=== PATIENT | female | born 1985 | race Hispanic/Latino ===

== ENCOUNTER 2018-02-12 10:13 | Emergency (ER) | payer OTHER ==
[2018-02-12 11:53] LABS: Urine Blood 3+ (NEG); Urine Glucose NEGATIVE (NEG); Urine Protein TRACE (NEG); Urine Specific Gravity 1.025 (1.005-1.030); Urine pH 5.5 (5.0-7.0)
[2018-02-12 12:22] LABS: Absolute Lymphocytes (CBC) 0.8 K/uL (0.7-4.9); Absolute Monocytes 0.3 K/uL (0.1-1.3); Absolute Neutrophil 2.6 K/uL (1.8-8.0); Basophils % 0.2 % (0-1.3); Eosinophils % 2.9 % (0-4.4); Hematocrit 38.6 % (36.0-45.0); Lymphocytes % 20.5 % (15.3-44.8); MPV 10.2 fL (7.6-11.3); Monocytes % 7.7 % (3.3-12.3)
[2018-02-12] MEDS ORDERED: NA CHLORIDE 0.9% 1,000 ML ONE (12:24)
[2018-02-12] MEDS ORDERED: ONDANSETRON 4 MG/2 ML VIAL ONE (12:24)
[2018-02-12] MEDS ORDERED: MAGNE/ALUM HYDROXD 30 ML UCUP ONE (12:24)
[2018-02-12] MEDS ORDERED: FAMOTIDINE 20 MG/2 ML VIAL IV ONE (12:25)
[2018-02-12] MEDS ORDERED: LIDOCAINE VISCOUS 2% SOLN 15 ML UDC ONE (12:25)
[2018-02-12 12:38] LABS: ALT/SGPT 14 U/L (12-78); AST/SGOT 16 U/L (15-37); Albumin 3.4 g/dL (3.4-5.0); Alkaline Phosphatase 68 U/L (45-117); BUN Blood Urea Nitrogen 9 mg/dL (7-18); Bicarbonate 23 mmol/L (21-32); Bilirubin Direct 0.3 mg/dL (0-0.2); Bilirubin Total 1.1 mg/dL (0.2-1.0); Glucose Level 92 mg/dL (74-106); Lipase 91 U/L (73-393); Magnesium 2.1 mg/dL (1.8-2.4); Potassium 3.2 mmol/L (3.5-5.1); Protein, Total 7.8 g/dL (6.4-8.2); Sodium Level 139 mmol/L (136-145)
[2018-02-12] MEDS ORDERED: CEFTRIAXONE/SWI 1gm 1 GM/10 ML SYR ONE (13:36)
--- NOTE | 2018-02-12 14:16 | EDPHYS ---
Physician Documentation [facility] Name: Luna Argueta Age: 33 yrs Sex: Female : 1985 Arrival Date: 02/12/2018 Time: 10:15 Bed 20 Private MD: ED Physician Jorge Rollins HPI: 02/12 11:58 This 33 yrs old Unknown Female presents to ER via Ambulatory with complaints of cp Diarrhea. 11:58 The patient presents to the emergency department with diarrhea, that is continuous, cp abdominal pain, of the epigastric area. 11:58 Onset: The symptoms/episode began/occurred 2 day(s) ago. Possible causes: unknown. cp Associated signs and symptoms: Pertinent positives: anorexia, Pertinent negatives: constipation, dysuria, GI bleeding, vomiting. Severity of symptoms: in the emergency department the symptoms are unchanged despite home interventions. 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 - Social history:: Smoking status: Patient/guardian denies using tobacco. - Ebola Screening: : Patient negative for fever greater than or equal to 101.5 degrees Fahrenheit, and additional compatible Ebola Virus Disease symptoms Patient denies exposure to infectious person Patient denies travel to an Ebola-affected area in the 21 days before illness onset No symptoms or risks identified at this time. ROS: 12:05 Constitutional: Positive for poor PO intake, Negative for body aches, fever. cp 12:05 Eyes: Negative for injury, pain, redness, and discharge. cp 12:05 ENT: Negative for drainage from ear(s), ear pain, sore throat, difficulty swallowing, difficulty handling secretions. 12:05 Cardiovascular: Negative for chest pain, edema, palpitations. 12:05 Respiratory: Negative for cough, shortness of breath, wheezing. 12:05 Abdomen/GI: Positive for abdominal pain, diarrhea, anorexia, Negative for vomiting, constipation, black/tarry stool, rectal bleeding. 12:05 Back: Negative for decreased range of motion, pain at rest, pain with movement, radiated pain. 12:05 Skin: Negative for cellulitis, rash. 12:05 Neuro: Negative for altered mental status, headache, weakness. 12:05 All other systems are negative. Exam: 12:10 Constitutional: The patient appears in no acute distress, alert, awake, cp non-diaphoretic, non-toxic, well developed, well nourished. 12:10 Head/Face: Normocephalic, atraumatic. cp 12:10 Eyes: Periorbital structures: appear normal, Conjunctiva: normal, no exudate, no injection, Sclera: no appreciated abnormality, Lids and lashes: appear normal, bilaterally. 12:10 ENT: External ear(s): are unremarkable, Ear canal(s): are normal, clear, TM's: are normal, no evidence of bulging, no erythema, Nose: is normal, Mouth: Lips: moist, Oral mucosa: pink and intact, moist, Posterior pharynx: is normal, airway is patent, no erythema, no exudate. 12:10 Neck: ROM/movement: is normal, is supple, without pain, no range of motions limitations, no meningismus, no nuchal rigidity. 12:10 Chest/axilla: Inspection: normal, Palpation: is normal, no crepitus, no tenderness. 12:10 Cardiovascular: Rate: normal, Rhythm: regular. 12:10 Respiratory: the patient does not display signs of respiratory distress, Respirations: normal, no use of accessory muscles, no retractions, no splinting, no tachypnea, labored breathing, is not present, Breath sounds: are clear throughout, no decreased breath sounds, no stridor, no wheezing. 12:10 Abdomen/GI: Inspection: abdomen appears normal, Bowel sounds: active, all quadrants, Palpation: soft, in all quadrants, mild abdominal tenderness, in the epigastric area, rebound tenderness, is not appreciated, voluntary guarding, is not appreciated, involuntary guarding, is not appreciated. 12:10 Back: CVA tenderness, is absent. 12:10 Skin: cellulitis, is not appreciated, no rash present. 12:10 Neuro: Orientation: to person, place \T\ time. Mentation: is normal, Cerebellar function: is grossly normal, Motor: moves all fours, strength is normal, Sensation: is normal. Vital Signs: 10:46 BP 120 / 92; Pulse 83; Resp 16; Temp 99.1; Pulse Ox 98% on R/A; Weight 81.65 kg; Height iw 5 ft. (152.40 cm); Pain 8/10; 14:34 BP 109 / 68; Pulse 79; Resp 18; Temp 97.8; Pulse Ox 100% ; mh5 10:46 Body Mass Index 35.15 (81.65 kg, 152.40 cm) iw MDM: 11:53 Patient medically screened. cp 12:00 Differential diagnosis: gastritis, cholecystitis, pancreatitis, appendicitis, cp diverticulitis, viral gastroenteritis, gastroenteritis. 14:15 Data reviewed: vital signs, nurses notes, lab test result(s), radiologic studies, CT cp scan. 14:15 Counseling: I had a detailed discussion with the patient and/or guardian regarding: the cp historical points, exam findings, and any diagnostic results supporting the discharge/admit diagnosis, lab results, radiology results, to return to the emergency department if symptoms worsen or persist or if there are any questions or concerns that arise at home. Response to treatment: the patient's symptoms have markedly improved after treatment, VSS. Patient reports symptoms markedly improved after IV fluids and meds. Will discharge to home for continued monitoring. 14:15 Special discussion: Based on the patient's Hx, exam, and Dx evaluation, there is no cp indication for emergent surgery or inpatient Tx. It is understood by the patient/guardian that if the Sx's persist or worsen they need to return immediately for re-evaluation. 02/12 11:46 Order name: Urine Dipstick--Ancillary (enter results); Complete Time: 11:55 02/12 11:46 Order name: Urine --Ancillary (enter results); Complete Time: 11:55 02/12 11:58 Order name: Basic Metabolic Panel; Complete Time: 13:05 02/12 14:09 Interpretation: Normal except: K 3.2; CL 108; CA 8.4. 02/12 11:58 Order name: CBC with Diff; Complete Time: 13:05 02/12 13:06 Interpretation: Normal except: WBC 3.8. 02/12 11:58 Order name: Creatinine for Radiology; Complete Time: 13:05 02/12 11:58 Order name: Hepatic Function; Complete Time: 13:05 02/12 11:58 Order name: Lipase; Complete Time: 13:05 cp 02/12 11:58 Order name: Urine Microscopic Only cp 02/12 11:58 Order name: Magnesium; Complete Time: 13:05 cp 02/12 11:58 Order name: IV Saline Lock; Complete Time: 13:38 cp 02/12 11:58 Order name: Labs collected and sent; Complete Time: 13:38 cp 02/12 13:07 Order name: PO challenge; Complete Time: 13:38 cp Administered Medications: 12:55 Drug: NS 0.9% 1000 ml Route: IV; Rate: 1 bolus; Site: right antecubital; sg 13:50 Follow up: Response: No adverse reaction; IV Status: Completed infusion; IV Intake: sg 990ml 13:40 Drug: GI Cocktail without - (Maalox Suspension 30 ml, Lidocaine Liquid 2 % 15 sg ml) Route: PO; 14:10 Follow up: Response: No adverse reaction; Marked relief of symptoms sg 14:20 Drug: Rocephin - (cefTRIAXone) 1 grams {Note: Slow IVP as instructed by Pharmacy.} sg Route: IVPB; Infused Over: 30 mins; Site: right antecubital; 14:40 Follow up: IV Status: Completed infusion sg 14:20 Drug: Potassium Effervescent Tablet 50 mEq Route: PO; iw 14:43 Follow up: Response: No adverse reaction sg 14:45 Not Given (Patient Refused): Pepcid 20 mg IVP once sg 14:45 Not Given (Patient Refused): Zofran 4 mg IVP once; over 2 minutes sg Disposition: 17:40 Co-signature as Attending Physician, Jorge Rollins MD. ma2 Disposition: 02/12/18 14:15 Discharged to Home. Impression: Diarrhea, unspecified, Urinary tract infection, site not specified. - Condition is Stable. - Discharge Instructions: Food Choices to Help Relieve Diarrhea, Adult, Diarrhea, Adult, Urinary Tract Infection, Adult. - Prescriptions for Cipro 500 mg Oral Tablet - take 1 tablet by ORAL route every 12 hours for 7 days; 14 tablet. Lomotil 2.5- 0.025 mg Oral Tablet - take 1 tablet by ORAL route every 6 hours As needed; 20 tablet. Zofran 4 mg Oral Tablet - take 1 tablet by ORAL route every 12 hours As needed; 20 tablet. - Medication Reconciliation Form, Thank You Letter, Antibiotic Education, Prescription Opioid Use form. - Follow up: Private Physician; When: 2 - 3 days; Reason: Recheck today's complaints. - Problem is new. - Symptoms have improved. Signatures: Dispatcher [employer] EDXavier Flower RN RN Chiara Rodriguez RN RN iw Page, Corey, [place] PA Jorge Gonzales MD MD ma2 Corrections: (The following items were deleted from the chart) 14:09 13:05 Normal except: K 3.2; CL 108. cp cp 14:46 14:15 02/12/2018 14:15 Discharged to Home. Impression: Diarrhea, unspecified; Urinary sg tract infection, site not specified. Condition is Stable. Forms are Medication Reconciliation Form, Thank You Letter, Antibiotic Education, Prescription Opioid Use. Follow up: Private Physician; When: 2 - 3 days; Reason: Recheck today's complaints. Problem is new. Symptoms have improved. cp
--- NOTE | 2018-02-12 14:16 | ER ---
Nurse's Notes [facility] Name: Luna Argueta Age: 33 yrs Sex: Female : 1985 Arrival Date: 02/12/2018 Time: 10:15 Bed 20 Private MD: Diagnosis: Diarrhea, unspecified;Urinary tract infection, site not specified Presentation: 02/12 10:45 Presenting complaint: Patient states: no appetite since Sunday, no vomiting, diarrhea iw since then, subj fever last night. Transition of care: patient was not received from another setting of care. Onset of symptoms was February 10, 2018. Risk Assessment: Do you want to hurt yourself or someone else? Patient reports no desire to harm self or others. Initial Sepsis Screen: Does the patient meet any 2 criteria? No. Patient's initial sepsis screen is negative. Does the patient have a suspected source of infection? No. Patient's initial sepsis screen is negative. Care prior to arrival: None. 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 - Social history:: Smoking status: Patient/guardian denies using tobacco. - Ebola Screening: : Patient negative for fever greater than or equal to 101.5 degrees Fahrenheit, and additional compatible Ebola Virus Disease symptoms Patient denies exposure to infectious person Patient denies travel to an Ebola-affected area in the 21 days before illness onset No symptoms or risks identified at this time. Vital Signs: 10:46 BP 120 / 92; Pulse 83; Resp 16; Temp 99.1; Pulse Ox 98% on R/A; Weight 81.65 kg; Height iw 5 ft. (152.40 cm); Pain 8/10; 14:34 BP 109 / 68; Pulse 79; Resp 18; Temp 97.8; Pulse Ox 100% ; mh5 10:46 Body Mass Index 35.15 (81.65 kg, 152.40 cm) ED Course: 10:15 Patient arrived in ED. as 10:45 Triage completed. iw 10:46 Arm band placed on. iw 11:18 Xavier Carlisle, RN is Primary Nurse. sg 11:35 Patient has correct armband on for positive identification. Placed in gown. Bed in low mh5 position. Call light in reach. Adult w/ patient. Pulse ox on. NIBP on. 11:35 Initial lab(s) drawn, by me, held in ED. Inserted saline lock: 20 gauge in right mh5 antecubital area, using aseptic technique. Blood collected. 11:53 Bartolome Payne PA is PHCP. cp 11:53 Jorge Rollins MD is Attending Physician. cp Administered Medications: 12:55 Drug: NS 0.9% 1000 ml Route: IV; Rate: 1 bolus; Site: right antecubital; sg 13:50 Follow up: Response: No adverse reaction; IV Status: Completed infusion; IV Intake: sg 990ml 13:40 Drug: GI Cocktail without - (Maalox Suspension 30 ml, Lidocaine Liquid 2 % 15 sg ml) Route: PO; 14:10 Follow up: Response: No adverse reaction; Marked relief of symptoms sg 14:20 Drug: Rocephin - (cefTRIAXone) 1 grams {Note: Slow IVP as instructed by Pharmacy.} sg Route: IVPB; Infused Over: 30 mins; Site: right antecubital; 14:40 Follow up: IV Status: Completed infusion sg 14:20 Drug: Potassium Effervescent Tablet 50 mEq Route: PO; iw 14:43 Follow up: Response: No adverse reaction sg 14:45 Not Given (Patient Refused): Pepcid 20 mg IVP once sg 14:45 Not Given (Patient Refused): Zofran 4 mg IVP once; over 2 minutes sg Intake: 13:50 IV: 990ml; Total: 990ml. sg Outcome: 14:15 Discharge ordered by . cp 14:46 Patient left the ED. sg Signatures: Xavier Carlisle, ALEXY TRACEY Arti Viramontes Irene, RN RN Bartolome Payne [place] [id number]
[2018-02-12] MEDS ORDERED: POTASSIUM 25 MEQ EFFERV TAB ONE (14:30)
[2018-02-12 15:53] LABS: Urine Bacteria >50 /HPF (<20); Urine Culture Reflex Order NOT NEEDED
== END 2018-02-12 14:46 | disposition home or self-care (01) ==
LOC: ER 10:13
DX: N39.0 Urinary tract infection, site not specified (principal)
CPT/HCPCS: 36415; 80048; 80076; 81003; 81015; 81025; 83690; 83735; 85025; 96361; 96365; 99284; J0696; J2405; J7030

== ENCOUNTER 2020-08-15 10:00 | Emergency (ER) | payer OTHER, SELFPAY ==
--- OUTSIDE RECORDS SUMMARY | 2020-08-15 10:02 | XMS REPORT | Continuity of Care Document ---
:1985 Author Organization [facility] t Address [address] [place] [address] Care Team Providers Name Role Phone Herman Seasy DO Attending Clinician Margaret EDMOND Attending Clinician Problems This patient has no known problems. Allergies, Adverse Reactions, Alerts This patient has no known allergies or adverse reactions. Medications This patient has no known medications. Procedures This patient has no known procedures. Encounters Start End Encounter Admission Attending Care Care Encounter Source Date/Time Date/Time Type Type Clinicians Facility Department ID 2020-05-10 2020-05-10 Patient PAULIE Sesay [id number] 00:00:00 00:00:00 Outreach [facility] [id number] Herman [facility] [id number] [place] [id number] 2019-11-25 2019-11-25 Office PAULIE Robles [id number] 09:23:07 10:58:08 Visit Abby Whittaker [id number] [place] [id number] [place] [id number] [address] Results This patient has no known results.
--- NOTE | 2020-08-15 11:01 | ER ---
Nurse's Notes [facility] Name: Luna Argueta Age: 35 yrs Sex: Female : 1985 Arrival Date: 08/15/2020 Time: 10:03 Bed 24 Private MD: Diagnosis: Acute sinusitis Presentation: 08/15 10:32 Chief complaint: Patient states: Congestion "allergies" since Sunday. + FRANCO and nasal iw pressure. Taking claritan D, and had 3 doses of cefdinir 300 mg (old left over antibiotic of her child). No fever. No N/V/D. Coronavirus screen: Client denies travel out of the [place] in the last 14 days. congestion, cough unrelated to allergies, headache, runny nose, sore throat, Client presents with at least one sign or symptom that may indicate coronavirus-19. Standard/surgical mask placed on the client. Ebola Screen: Patient denies travel to an Ebola-affected area in the 21 days before illness onset. Initial Sepsis Screen: Does the patient meet any 2 criteria? HR > 90 bpm. No. Patient's initial sepsis screen is negative. Does the patient have a suspected source of infection? Yes: Productive cough/pneumonia. Risk Assessment: Do you want to hurt yourself or someone else? Patient reports no desire to harm self or others. Onset of symptoms was August 11, 2020. 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 - Social history:: Smoking status: Patient denies any tobacco usage or history of. Screenin:22 Abuse screen: Denies threats or abuse. Denies injuries from another. Nutritional kg screening: No deficits noted. Tuberculosis screening: No symptoms or risk factors identified. Fall Risk None identified. No fall in past 12 months (0 pts). No secondary diagnosis (0 pts). No IV (0 pts). Ambulatory Aid- None/Bed Rest/Nurse Assist (0 pts). Gait- Normal/Bed Rest/Wheelchair (0 pts) Mental Status- Oriented to own ability (0 pts). Total Kang Fall Scale indicates No Risk (0-24 pts). Assessment: 10:55 General: Appears in no apparent distress. Behavior is calm, cooperative, appropriate kg for age, quiet. Pain: Complains of pain in face Pain currently is 8 out of 10 on a pain scale. at worst was 8 out of 10 on a pain scale. level that patient reports is acceptable is 3 out of 10 on a pain scale. Quality of pain is described as aching. Neuro: No deficits noted. Cardiovascular: No deficits noted. Respiratory: Reports cough that is productive, pain with cough Airway is patent Trachea midline Respiratory effort is even, unlabored, relaxed, Respiratory pattern is regular, Breath sounds are clear bilaterally. GI: No deficits noted. : No deficits noted. EENT: Reports nasal congestion nasal discharge sore throat. Vital Signs: 10:32 BP 128 / 91; Pulse 100; Resp 17; Temp 98.5; Pulse Ox 96% ; Weight 86.18 kg; Height 5 iw ft. 0 in. (152.40 cm); Pain 6/10; 11:16 BP 126 / 99; Pulse 102; Resp 20; Pulse Ox 100% on R/A; kg 10:32 Body Mass Index 37.11 (86.18 kg, 152.40 cm) iw ED Course: 10:03 Patient arrived in ED. as 10:04 Rosana Fernandez FNP-C is PHCP. kb 10:04 Bartolome Escalona MD is Attending Physician. kb 10:32 Arm band placed on Patient placed in an exam room, on a stretcher. iw 10:35 Triage completed. iw 10:50 Sushila Man, ALEXY is Primary Nurse. kg 11:22 Patient has correct armband on for positive identification. Bed in low position. Call kg light in reach. Side rails up X 1. 11:22 No provider procedures requiring assistance completed. Patient did not have IV access kg during this emergency room visit. Administered Medications: 10:53 CANCELLED (Duplicate Order): SOLU-Medrol (methylPrednisoLONE) 125 mg IVP once kb 11:04 Drug: SOLU-Medrol (methylPREDNISolone sodium succinate) 125 mg Route: IM; Site: right kg gluteus; 11:16 Follow up: Response: No adverse reaction kg Outcome: 11:01 Discharge ordered by MD. weiss 11:23 Discharged to home ambulatory. kg 11:23 Condition: stable 11:23 Discharge instructions given to patient, Instructed on discharge instructions, follow up and referral plans. Demonstrated understanding of instructions, follow-up care. 11:23 Patient left the ED. kg Signatures: Rosana Fernandez, MIRZA VERA-Arti Moore as Chiara Deras RN RN iw Sushila Man RN RN kg
--- NOTE | 2020-08-15 11:01 | EDPHYS ---
Physician Documentation [facility] Name: Luna Argueta Age: 35 yrs Sex: Female : 1985 Arrival Date: 08/15/2020 Time: 10:03 Bed 24 Private MD: ELIZABETH Physician Bartolome Escalona HPI: 08/15 10:57 This 35 yrs old Female presents to ER via Ambulatory with complaints of Cold kb Symptoms. 10:57 The patient or guardian reports cough, that is intermittent, described as mild. Onset: kb The symptoms/episode began/occurred 5 day(s) ago. Severity of symptoms: At their worst the symptoms were moderate, in the emergency department the symptoms are unchanged. Modifying factors: The symptoms are alleviated by nothing, the symptoms are aggravated by nothing. Associated signs and symptoms: Pertinent positives: rhinorrhea, Pertinent negatives: chest pain, diarrhea, ear ache, fever, nausea, sore throat, vomiting. The patient has experienced similar episodes in the past, a few times. The patient has not recently seen a physician. Pt reports she has seasonal allergies that started up a week ago. States she had itchy eyes and sneezing. Pt woke up with cough, sinus congestion, runny nose and ear fullness on Sunday. States she has been taking claritin D and cefdinir 300mg BID, but symptoms aren't getting better. Denies fever/chills. 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 - Social history:: Smoking status: Patient denies any tobacco usage or history of. ROS: 10:57 Constitutional: Negative for fever, chills, and weight loss. kb 10:57 ENT: Positive for ear pain, rhinorrhea, sinus congestion, sinus pain. 10:57 Respiratory: Positive for cough, Negative for dyspnea on exertion, hemoptysis, orthopnea, pleurisy, shortness of breath, sputum production, wheezing. 10:57 All other systems are negative. Exam: 11:00 Constitutional: This is a well developed, well nourished patient who is awake, alert, kb and in no acute distress. Head/Face: Normocephalic, atraumatic. Cardiovascular: Regular rate and rhythm with a normal S1 and S2. No gallops, murmurs, or rubs. No pulse deficits. Respiratory: Respirations even and unlabored. No increased work of breathing, no retractions or nasal flaring. Skin: Warm, dry with normal turgor. Normal color. MS/ Extremity: Pulses equal, no cyanosis. Neurovascular intact. Full, normal range of motion. Neuro: Awake and alert, GCS 15, oriented to person, place, time, and situation. Moves all extremities. Normal gait. Psych: Awake, alert, with orientation to person, place and time. Behavior, mood, and affect are within normal limits. 11:00 ENT: External ear(s): are unremarkable, Ear canal(s): are normal, TM's: are normal, Nose: is normal, Mouth: is normal, Posterior pharynx: is normal. Vital Signs: 10:32 BP 128 / 91; Pulse 100; Resp 17; Temp 98.5; Pulse Ox 96% ; Weight 86.18 kg; Height 5 iw ft. 0 in. (152.40 cm); Pain 6/10; 11:16 BP 126 / 99; Pulse 102; Resp 20; Pulse Ox 100% on R/A; kg 10:32 Body Mass Index 37.11 (86.18 kg, 152.40 cm) iw MDM: 10:37 Patient medically screened. kb 10:57 Data reviewed: vital signs, nurses notes. Data interpreted: Pulse oximetry: on room air kb is 96 %. Interpretation: normal. Counseling: I had a detailed discussion with the patient and/or guardian regarding: the historical points, exam findings, and any diagnostic results supporting the discharge/admit diagnosis, the need for outpatient follow up, a family practitioner, to return to the emergency department if symptoms worsen or persist or if there are any questions or concerns that arise at home. 11:01 ED course: Pt educated to treat symptoms with otc medications. No exam findings to kb indicate need for antibiotics. Recommended mucinex and flonase for symptoms. . Administered Medications: 10:53 CANCELLED (Duplicate Order): SOLU-Medrol (methylPrednisoLONE) 125 mg IVP once kb 11:04 Drug: SOLU-Medrol (methylPREDNISolone sodium succinate) 125 mg Route: IM; Site: right kg gluteus; 11:16 Follow up: Response: No adverse reaction kg Disposition: 08/15/20 11:01 Discharged to Home. Impression: Acute sinusitis. - Condition is Stable. - Discharge Instructions: Sinusitis, Adult, Tmae-mo-Oumy. - Medication Reconciliation Form, Thank You Letter, Antibiotic Education, Prescription Opioid Use form. - Follow up: Private Physician; When: 2 - 3 days; Reason: Recheck today's complaints, Continuance of care, Re-evaluation by your physician. Follow up: Emergency Department; When: As needed; Reason: Worsening of condition. Addendum: 08/18/2020 07:50 Co-signature as Attending Physician, Bartolome Escalona MD I agree with the assessment and c rincon plan of care. Signatures: Rosana Fernandez, JODY-C JODY-Bartolome Vasques MD MD cha Williams, Irene, RN RN iw Sushila Man RN RN kg Corrections: (The following items were deleted from the chart) 08/15 10:53 10:53 SOLU-Medrol (methylPrednisoLONE) 125 mg IVP once ordered. kb kb 11:23 11:01 08/15/2020 11:01 Discharged to Home. Impression: Acute sinusitis. Condition is kg Stable. Forms are Medication Reconciliation Form, Thank You Letter, Antibiotic Education, Prescription Opioid Use. Follow up: Private Physician; When: 2 - 3 days; Reason: Recheck today's complaints, Continuance of care, Re-evaluation by your physician. Follow up: Emergency Department; When: As needed; Reason: Worsening of condition. kb
[2020-08-15] MEDS ORDERED: METHYLPREDNISOLONE 125 MG INJ ONE (11:29)
[2020-08-15 11:31] VITALS: TEMP 98.5
[2020-08-15 11:33] VITALS: BP 126/99; O2SAT 100
== END 2020-08-15 11:23 | disposition home or self-care (01) ==
LOC: ER 10:00
DX: J01.90 Acute sinusitis, unspecified (principal)
CPT/HCPCS: 96372; 99283; J2930

== ENCOUNTER 2022-05-17 06:16 | Day surgery (SDC) | payer BC ==
[2022-05-15 15:57] LABS: Absolute Lymphocytes (CBC) 2.7 K/uL (0.7-4.9); Hematocrit 34.7 % (36.0-45.0); Lymphocytes % 31.7 % (15.3-44.8); MCV 85.2 fL (80-100); MPV 8.7 fL (7.6-11.3); RBC Red Blood Cell Count 4.08 M/uL (3.86-4.86)
[2022-05-15 16:12] LABS: Albumin 3.2 g/dL (3.4-5.0); Bilirubin Direct 0.1 mg/dL (0-0.2); Bilirubin Total 0.5 mg/dL (0.2-1.0); Potassium 4.2 mEq/L (3.5-5.1); Protein, Total 7.4 g/dL (6.4-8.2)
[2022-05-17] MEDS ORDERED: Ringers Lactate 1,000 ML IV ONE (06:57)
[2022-05-17] MEDS ORDERED: CEFOXITIN SODIUM 1 GM/VIAL ONE (06:57)
[2022-05-17] MEDS ORDERED: ONDANSETRON 4 MG/2 ML VIAL ONE (07:28)
[2022-05-17] MEDS ORDERED: propofoL 200 MG/20 ML VIAL IV ONE (07:28)
[2022-05-17] MEDS ORDERED: ROCURONIUM 50 MG/5 ML VIAL IV ONE (07:28)
[2022-05-17] MEDS ORDERED: FENTANYL CITR 100 MCG/2 ML ONE (07:28)
[2022-05-17] MEDS ORDERED: MIDAZOLAM HCL 2 MG/2 ML INJ ONE (07:28)
[2022-05-17] MEDS ORDERED: LIDOCAINE 2% MPF 5 ML VIAL ONE (07:29)
--- NOTE | 2022-05-17 07:46 | P.BOP ---
Preoperative diagnosis: stmptomatic cholelithiasis, biliary dyskinesia, acute Cholecystistis Postoperative diagnosis: same Primary procedure: Laparoscopic cholecystectomy Estimated blood loss: <10cc Specimen: gb Findings: as above Anesthesia: General Transferred to: Recovery Room Condition: Good
[2022-05-17] MEDS ORDERED: NEOSTIGMINE 1 MG/ML -10 ML VIAL ONE (08:20)
[2022-05-17] MEDS ORDERED: GLYCOPYRROLATE 0.2 MG/ML SYR ONE (08:20)
[2022-05-17] MEDS ORDERED: KETOROLAC 30 MG/ML INJ ONE (08:23)
[2022-05-17] MEDS ORDERED: SUGAMMADEX SODIUM 200 MG/2 ML VIAL IV ONE (08:40)
[2022-05-17 08:46] VITALS: O2SAT 100
[2022-05-17] MEDS: HYDROMORPHONE HCL 1 MG/ML INJ ONE ×2 (08:53→09:04)
[2022-05-17] MEDS ORDERED: HYDROCODONE/APAP 7.5/325 MG TAB ONE (09:49)
[2022-05-17 10:42] VITALS: BP 129/80; TEMP 96.6
--- NOTE | 2022-05-17 13:24 | DS ---
Date of Discharge: 05/17/2022 Diagnoses: Symptomatic cholelithiasis, biliary dyskinesia, acute cholecystitis. Procedure: Laparoscopic cholecystectomy. Disposition: Home. Activity: As tolerated. No heavy lifting. Plan: Follow up in my office in 1 week. Call for appointment at [phone]. Keep area dry for 48 james rs, then may shower. Keep Steri-Strips intact. KEYA/ROME Voice ID: [id number] Report ID: [id number]
--- NOTE | 2022-05-17 13:24 | OP ---
Date of Procedure: 05/17/2022 Surgeon: Tristan Viramontes MD Analytical Manager: ANISA Chirinos. Preoperative Diagnoses: Symptomatic cholelithiasis, biliary dyskinesia, acute cholecystitis. Postoperative Diagnoses: Symptomatic cholelithiasis, biliary dyskinesia, acute cholecystitis. Procedure: Laparoscopic cholecystectomy. Estimated Blood Loss: Less than 10 mL. Estimated Blood Loss: Less than 10 mL. Complications: None. Specimen: Gallbladder. Indication: This is the case of a 37-year-old patient with all the above diagnoses as above. Benefi ts, alternatives, and risks of laparoscopic possible open cholecystectomy fully explained, which incl ude, but not limited to infection, bleeding, damage to adjacent structures, anesthesia complication, choledocholithiasis, bile leak, pancreatitis, CO, and even . She also understands this may not relieve any symptoms. She might need more than one surgical intervention. She understood, signed a consent. Procedure In Detail: The patient was brought to the operating room, placed in supine position. Anes thesia was done without complication. Abdominal area was prepped and draped in the usual sterile fas hion. Marcaine 0.5% was injected for local anesthetic followed by sharp incision of the skin in the infraumbilical region. The incision was carried down to fascia, which was opened under direct vision . Peritoneum was encountered, opened under direct vision. Vicryl #1 placed inside the fascia. Gopi on trocar was carefully introduced. Pneumoperitoneum was obtained. I placed 3 more trocars, 5 mm ea ch one of them, 1 in epigastric area, 2 in the right upper quadrant using same technique, which was c onsisted of local anesthetic, sharp incision of the skin, and introduction of the trocars under direc t vision. This allowed me to put a grasper in the fundus of the gallbladder, another grasper in the infundibulum, retracting the gallbladder in the inferolateral fashion, exposing the triangle of Calot , and obtaining critical view. Cystic duct and cystic artery were clearly isolated, freed circumfere ntially and a connection between those and the gallbladder were clearly identified. I proceeded to l igate those by using at least 3 clips proximal, 1 clip distal, ligation in the middle. Same was done with the cystic artery. No bile leak. No bleeding. The gallbladder was removed from liver using B ovie cauterizer and removed from abdominal cavity using the EndoCatch through the umbilical incision. The area was inspected once again. No bile leak. No bleeding. At that moment, I proceeded to rem ove the trocars under direct vision. Deflated pneumoperitoneum, closed the fascia with #1 Vicryl. I rrigated subcutaneous tissue, closed that with 3-0 chromic and skin in a subcuticular fashion with 3- 0 chromic and Steri-Strips on top. Sponge count, instrument counts correct. The patient tolerated t he procedure well. The patient was sent to recovery in stable condition. KEYA/ROME Voice ID: [id number] Report ID: [id number]
== END 2022-05-17 10:25 | disposition home or self-care (01) ==
LOC: OR 06:16
PROVIDERS: ATTEND Surgery
PROC: 0FT44ZZ Resection of Gallbladder, Percutaneous Endoscopic Approach (ICD-10-PCS; principal; 2022-05-17 07:30)
DX: K80.00 Calculus of gallbladder with acute cholecystitis without obstruction (principal); K82.8 Other specified diseases of gallbladder; E66.9 Obesity, unspecified; Z68.37 Body mass index [BMI] 37.0-37.9, adult; Z98.84 Bariatric surgery status
CPT/HCPCS: 36415; 80048; 80076; 81025; 83690; 85025; 88304; J0694; J1170; J2001; J2250; J2405; J2704; J2710; J3010; J7120